=== PATIENT | male | born 1995 | race Caucasian/White ===

== ENCOUNTER 2018-04-17 20:36 | Inpatient (IN) | payer OTHER ==
[~2018-04-17] VITALS: Ht 185.4 cm; Wt 119.4 kg
[2018-04-17] MEDS ORDERED: COGENTIN1 MG PO (20:56)
[2018-04-17] MEDS ORDERED: SEROQUEL200 MG PO (20:56)
[2018-04-17 20:59] VITALS: BP 139/100
[2018-04-17 21:05] VITALS: BP 139/100
[2018-04-18 09:35] VITALS: BP 128/67
[2018-04-18 16:11] VITALS: BP 137/80
[2018-04-19 07:48] VITALS: BP 117/81
[2018-04-19 16:25] VITALS: BP 101/53
[2018-04-20 07:50] VITALS: BP 117/64
[2018-04-20 15:22] VITALS: BP 131/70
[2018-04-21 07:51] VITALS: BP 109/60
[2018-04-21 15:26] VITALS: BP 134/77
[2018-04-22 07:55] VITALS: BP 92/50
[2018-04-22 16:43] VITALS: BP 105/55
[2018-04-23 07:56] VITALS: BP 119/78
[2018-04-23] MEDS ORDERED: QUETIAPINE FUM300 MG PO (09:13)
[2018-04-23] MEDS ORDERED: QUETIAPINE FUM200 MG PO (09:13)
[2018-04-23] MEDS ORDERED: Thiamine,Vitamin B1 PO (09:13)
[2018-04-23] MEDS ORDERED: FOLIC ACID1 MG PO (09:13)
[2018-04-23] MEDS ORDERED: DIVALPROEX SOD500 MG PO (09:13)
== END 2018-04-23 12:21 | disposition home or self-care (01) | DRG 885 ==
LOC: PHYS 20:36 → 1WEST 20:42
DX: F31.2 Bipolar disorder, current episode manic severe with psychotic features (principal); R45.851 Suicidal ideations; F12.20 Cannabis dependence, uncomplicated; Z56.0 Unemployment, unspecified; Z59.0 Homelessness; F11.21 Opioid dependence, in remission; F14.21 Cocaine dependence, in remission; F10.20 Alcohol dependence, uncomplicated
CPT/HCPCS: 80164; 97150 GO; 97165 GO; Q0177